=== PATIENT | female | born 1945 | race Caucasian/White ===

== ENCOUNTER 2018-01-24 20:01 | Emergency (ER) | payer MEDICARE ==
[2018-01-24 21:08] LABS: Hematocrit 33.9 % (30.3-42.9); Hemoglobin 11.2 gm/dl (10.1-14.3); Mean Corpuscular HGB Conc 33 % (30-34); Mean Corpuscular Hemoglobin 34 pg (28-32); Mean Corpuscular Volume 104 fl (79-97); Red Blood Count 3.27 M/mm3 (3.65-5.03)
[2018-01-24 21:09] LABS: Basophils # (Auto) 0.1 K/mm3 (0.0-0.1); Eosinophils # (Auto) 0.2 K/mm3 (0.0-0.4); Eosinophils % (Auto) 2.8 % (0.0-4.3); Lymphocytes # (Auto) 2.4 K/mm3 (1.2-5.4); Lymphocytes % (Auto) 38.3 % (13.4-35.0); Monocytes # (Auto) 0.3 K/mm3 (0.0-0.8); Platelet Count 196 K/mm3 (140-440); Red Cell Distribution Width 13.6 % (13.2-15.2)
[2018-01-24 21:16] LABS: Albumin 4.5 g/dL (3.9-5); Calcium 10.1 mg/dL (8.4-10.2)
[2018-01-24] MEDS ORDERED: NACL 0.9% 1000 ML 1,000 ML IV ONE (23:22)
--- NOTE | 2018-01-24 23:25 | Emergency Department Report ---
ED ENT HPI - General Chief complaint: Nausea/Vomiting/Diarrhea Stated complaint: N/V Source: patient Mode of arrival: Ambulatory Limitations: No Limitations - History of Present Illness Initial comments: 72-year-old female presents to the hospital with multiple complaints. The the past 3 days she is stated that her thyroid nodules in her throat making it difficult for her to swallow and breathe. She has nausea and one episode of vomiting since yesterday. Patient has some mild diarrhea yesterday which has since resolved. Patient states she has been out of her thyroid medicine for the last 7 months sleeping a lot. No reports of fever, focal weakness, focal numbness, chest pain, shortness, or abdominal pain. On previous medical record review patient was on Synthroid 100 g every morning. She states she has not had the medication because she was unable to follow up with her primary care doctor Dr. Tulio Shoemaker due to lack of transportation.. - Related Data Previous Rx's Medication Instructions Recorded Last Taken Type Albuterol Sulfate [Ventolin HFA] 2 puff IH Q4H PRN #30 hfa.aer.ad 04/12/17 Unknown Rx Azithromycin [Zithromax TAB] 500 mg PO QDAY #3 tablet 04/12/17 Unknown Rx Famotidine [Pepcid] 20 mg PO QDAY #30 tablet 04/12/17 Unknown Rx Fluticasone/Salmeterol [Advair 1 each INHALATION BID 30 Days 04/12/17 Unknown Rx 250-50 Diskus] blst.w.dev Ipratropium/Albuterol Sulfate 1 ampul IH Q6HRT #30 ampul.neb 04/12/17 Unknown Rx [DUONEB *Not for PRN Use*] Montelukast [Singulair] 10 mg PO QHS #30 tablet 04/12/17 Unknown Rx Prednisone [predniSONE 10 mg 10 mg PO .TAPER #1 tab.ds.pk 04/12/17 Unknown Rx (6-Day Pack, 21 Tabs)] Levothyroxine [Synthroid] 100 mcg PO QAM #30 tablet 01/25/18 Unknown Rx Allergies Allergy/AdvReac Type Severity Reaction Status Date / Time Sulfa (Sulfonamide Allergy Shortness Verified 04/10/17 18:33 Antibiotics) of Breath ED Dental HPI - General Chief complaint: Nausea/Vomiting/Diarrhea Stated complaint: N/V Source: patient Mode of arrival: Ambulatory Limitations: No Limitations - Related Data Previous Rx's Medication Instructions Recorded Last Taken Type Albuterol Sulfate [Ventolin HFA] 2 puff IH Q4H PRN #30 hfa.aer.ad 04/12/17 Unknown Rx Azithromycin [Zithromax TAB] 500 mg PO QDAY #3 tablet 04/12/17 Unknown Rx Famotidine [Pepcid] 20 mg PO QDAY #30 tablet 04/12/17 Unknown Rx Fluticasone/Salmeterol [Advair 1 each INHALATION BID 30 Days 04/12/17 Unknown Rx 250-50 Diskus] blst.w.dev Ipratropium/Albuterol Sulfate 1 ampul IH Q6HRT #30 ampul.neb 04/12/17 Unknown Rx [DUONEB *Not for PRN Use*] Montelukast [Singulair] 10 mg PO QHS #30 tablet 04/12/17 Unknown Rx Prednisone [predniSONE 10 mg 10 mg PO .TAPER #1 tab.ds.pk 04/12/17 Unknown Rx (6-Day Pack, 21 Tabs)] Levothyroxine [Synthroid] 100 mcg PO QAM #30 tablet 01/25/18 Unknown Rx Allergies Allergy/AdvReac Type Severity Reaction Status Date / Time Sulfa (Sulfonamide Allergy Shortness Verified 04/10/17 18:33 Antibiotics) of Breath ED Review of Systems ROS: Stated complaint: N/V Other details as noted in HPI Comment: All other systems reviewed and negative ED Past Medical Hx - Past Medical History Hx Hypertension: Yes Hx Congestive Heart Failure: No Hx Diabetes: No Hx Renal Disease: Yes Hx Arthritis: Yes Hx Psychiatric Treatment: Yes (anxiety / depression) Hx Asthma: Yes Hx COPD: Yes ("nodules in throat ") Additional medical history: scoliosis. spinal stenosis. osteoporosis. thyroid - Surgical History Additional Surgical History: bilateral hip surgery. tubal ligation - Social History Smoking Status: Never Smoker Substance Use Type: None - Medications Home Medications: Home Medications Medication Instructions Recorded Confirmed Last Taken Type Albuterol Sulfate [Ventolin HFA] 2 puff IH Q4H PRN #30 hfa.aer.ad 04/12/17 Unknown Rx Azithromycin [Zithromax TAB] 500 mg PO QDAY #3 tablet 04/12/17 Unknown Rx Famotidine [Pepcid] 20 mg PO QDAY #30 tablet 04/12/17 Unknown Rx Fluticasone/Salmeterol [Advair 1 each INHALATION BID 30 Days 04/12/17 Unknown Rx 250-50 Diskus] blst.w.dev Ipratropium/Albuterol Sulfate 1 ampul IH Q6HRT #30 ampul.neb 04/12/17 Unknown Rx [DUONEB *Not for PRN Use*] Montelukast [Singulair] 10 mg PO QHS #30 tablet 04/12/17 Unknown Rx Prednisone [predniSONE 10 mg 10 mg PO .TAPER #1 tab.ds.pk 04/12/17 Unknown Rx (6-Day Pack, 21 Tabs)] Levothyroxine [Synthroid] 100 mcg PO QAM #30 tablet 01/25/18 Unknown Rx ED Physical Exam - General Limitations: No Limitations - Other Other exam information: General: No limitations, patient is alert in no acute distress Head exam: Atraumatic, normocephalic Eyes exam: Normal appearance, pupils equal reactive to light, extraocular movements intact ENT: Moist mucous membrane, normal oropharynx Neck exam: Normal inspection, full range of motion, no meningismus nontender. No thyromegaly noted Respiratory exam: Clear to auscultation bilateral, no wheezes, rales, crackles Cardiovascular: Normal rate and rhythm, normal heart sounds Abdomen: Soft, nondistended, mild right lower quadrant tenderness, with normal bowel sounds, no rebound, or guarding Extremity: Full range of motion normal inspection no deformity Back: Normal Inspection, full range of motion, no tenderness Neurologic: Alert, oriented x3, cranial nerves intact, no motor or sensory deficit Psychiatric: normal affect, normal mood Skin: Warm, dry, intact ED Course Vital Signs 01/24/18 01/24/18 01/24/18 20:14 23:22 23:30 Temperature 98.2 F Pulse Rate 85 Respiratory 16 Rate Blood Pressure 103/58 Blood Pressure 104/68 [Right] O2 Sat by Pulse 95 100 94 Oximetry 01/24/18 01/25/18 23:35 02:07 Temperature 97.7 F Pulse Rate 86 78 Respiratory 18 Rate Blood Pressure Blood Pressure 97/62 105/59 [Right] O2 Sat by Pulse 97 Oximetry ED Medical Decision Making - Lab Data Result diagrams: 01/24/18 20:34 01/24/18 20:34 Lab Results 01/24/18 01/24/18 01/24/18 Range/Units 20:34 20:34 20:40 WBC 6.3 (4.5-11.0) K/mm3 RBC 3.27 L (3.65-5.03) M/mm3 Hgb 11.2 (10.1-14.3) gm/dl Hct 33.9 (30.3-42.9) % MCV 104 H (79-97) fl MCH 34 H (28-32) pg MCHC 33 (30-34) % RDW 13.6 (13.2-15.2) % Plt Count 196 (140-440) K/mm3 Lymph % (Auto) 38.3 H (13.4-35.0) % Nobles % (Auto) 5.0 (0.0-7.3) % Eos % (Auto) 2.8 (0.0-4.3) % Baso % (Auto) 1.0 (0.0-1.8) % Lymph # 2.4 (1.2-5.4) K/mm3 Nobles # 0.3 (0.0-0.8) K/mm3 Eos # 0.2 (0.0-0.4) K/mm3 Baso # 0.1 (0.0-0.1) K/mm3 Add Manual Diff Complete Seg Neutrophils % 52.9 (40.0-70.0) % Seg Neutrophils # 3.3 (1.8-7.7) K/mm3 Sodium 140 (137-145) mmol/L Potassium 4.6 (3.6-5.0) mmol/L Chloride 101.4 (98-107) mmol/L Carbon Dioxide 26 (22-30) mmol/L Anion Gap 17 mmol/L BUN 19 H (7-17) mg/dL Creatinine 1.8 H (0.7-1.2) mg/dL Estimated GFR 28 ml/min BUN/Creatinine Ratio 11 % Glucose 106 H (65-100) mg/dL Calcium 10.1 (8.4-10.2) mg/dL Total Bilirubin 0.60 (0.1-1.2) mg/dL AST 15 (5-40) units/L ALT 7 (7-56) units/L Alkaline Phosphatase 96 (35-129) units/L Total Protein 6.4 (6.3-8.2) g/dL Albumin 4.5 (3.9-5) g/dL Albumin/Globulin Ratio 2.4 % TSH (0.270-4.200) mlU/mL Free T4 (0.76-1.46) ng/dL Urine Color (Yellow) Urine Turbidity (Clear) Urine pH (5.0-7.0) Ur Specific [place] (1.003-1.030) Urine Protein (Negative) mg/dL Urine Glucose (UA) (Negative) mg/dL Urine Ketones (Negative) mg/dL Urine Blood (Negative) Urine Nitrite (Negative) Urine Bilirubin (Negative) Urine Urobilinogen (<2.0) mg/dL Ur Leukocyte Esterase (Negative) Urine WBC (Auto) (0.0-6.0) /HPF Urine RBC (Auto) (0.0-6.0) /HPF U Epithel Cells (Auto) (0-13.0) /HPF Urine Mucus /HPF Blood Type O POSITIVE Antibody Screen Negative 01/24/18 01/25/18 Range/Units 23:33 00:06 WBC (4.5-11.0) K/mm3 RBC (3.65-5.03) M/mm3 Hgb (10.1-14.3) gm/dl Hct (30.3-42.9) % MCV (79-97) fl MCH (28-32) pg MCHC (30-34) % RDW (13.2-15.2) % Plt Count (140-440) K/mm3 Lymph % (Auto) (13.4-35.0) % Nobles % (Auto) (0.0-7.3) % Eos % (Auto) (0.0-4.3) % Baso % (Auto) (0.0-1.8) % Lymph # (1.2-5.4) K/mm3 [place]les # (0.0-0.8) K/mm3 Eos # (0.0-0.4) K/mm3 Baso # (0.0-0.1) K/mm3 Add Manual Diff Seg Neutrophils % (40.0-70.0) % Seg Neutrophils # (1.8-7.7) K/mm3 Sodium (137-145) mmol/L Potassium (3.6-5.0) mmol/L Chloride (98-107) mmol/L Carbon Dioxide (22-30) mmol/L Anion Gap mmol/L BUN (7-17) mg/dL Creatinine (0.7-1.2) mg/dL Estimated GFR ml/min BUN/Creatinine Ratio % Glucose (65-100) mg/dL Calcium (8.4-10.2) mg/dL Total Bilirubin (0.1-1.2) mg/dL AST (5-40) units/L ALT (7-56) units/L Alkaline Phosphatase (35-129) units/L Total Protein (6.3-8.2) g/dL Albumin (3.9-5) g/dL Albumin/Globulin Ratio % TSH > 100.000 H (0.270-4.200) mlU/mL Free T4 0.23 L (0.76-1.46) ng/dL Urine Color Yellow (Yellow) Urine Turbidity Clear (Clear) Urine pH 6.0 (5.0-7.0) Ur Specific [place] 1.016 (1.003-1.030) Urine Protein <15 mg/dl (Negative) mg/dL Urine Glucose (UA) Neg (Negative) mg/dL Urine Ketones Neg (Negative) mg/dL Urine Blood Neg (Negative) Urine Nitrite Neg (Negative) Urine Bilirubin Neg (Negative) Urine Urobilinogen 2.0 (<2.0) mg/dL Ur Leukocyte Esterase Neg (Negative) Urine WBC (Auto) < 1.0 (0.0-6.0) /HPF Urine RBC (Auto) 1.0 (0.0-6.0) /HPF U Epithel Cells (Auto) < 1.0 (0-13.0) /HPF Urine Mucus Few /HPF Blood Type Antibody Screen - Radiology Data Radiology results: report reviewed ct neck noncontrast IMPRESSION: No acute inflammatory or neoplastic process identified in the neck. No definite thyroid nodule and L5. The study is limited without IV contrast. Localized mucosal thickening in the right ethmoid air cells. ct a/p noncontrast IMPRESSION: Gallstones with choledocholithiasis. No secondary signs of acute cholecystitis. Large hiatal hernia. Small pericardial effusion. Small right-sided pleural effusion. Benign peripelvic cysts in left kidney. Chronic compression fractures of L1 and L3 with kyphoplasty changes. Hardware also noted in both proximal femora. - Medical Decision Making Patient is stable tolerating by mouth without difficulty swallowing. Labs only significant for hypothyroidism. CT neck and abdomen and pelvis only show incidental findings. Patient provided a copy of her reports to follow-up. Stressed importance of follow-up with her primary care doctor for further management of her thyroid and other incidental findings. 1 month supply of Synthroid of her last known dose will be provided. First dose provided in the ED - Differential Diagnosis gastroenteritis, hypothyroidism, UTI, esophageal/neck mass Critical Care Time: No Critical care attestation.: If time is entered above; I have spent that time in minutes in the direct care of this critically ill patient, excluding procedure time. ED Disposition Clinical Impression: Hypothyroidism, Nonadherence to medication, Chronic renal insufficiency, Hiatal hernia, Gallstones Disposition: TO HOME OR SELFCARE Is pt being admited?: No Does the pt Need Aspirin: No Condition: Stable Instructions: Hiatal Hernia (ED), Hypothyroidism (ED), Impaired Kidney Function (ED) Additional Instructions: Taking medication as prescribed. Take a copy of the CAT scan provided to your for further evaluation and monitoring of incidental findings. It is also very important for you to follow up with your primary care doctor for further adjustment in your thyroid medication. Please return if symptoms worsen as indicated by good discharge instructions. You have been provided a follow-up with GI specialist as well. Prescriptions: Levothyroxine [Synthroid] 100 mcg PO QAM #30 tablet Referrals: ANA FINE MD [Primary Care Provider] - 3-5 Days your, pmd [Other] - 3-5 Days ROMA KUMAR MD [Staff Physician] - 3-5 Days (GI specialist) Time of Disposition: 02:34
[2018-01-25] LABS: Bilirubin,Urine NEG (Negative); Blood,Urine NEG (Negative); Color,Urine Yellow (Yellow); Mucus,Urine FEW /HPF; Protein,Urine <15 mg/dL mg/dL (Negative); WBC,Urine < 1.0 /HPF (0.0-6.0)
--- NOTE | 2018-01-25 00:34 | Cat Scan Report ---
FINAL REPORT EXAM: CT ABDOMEN PELVIS WO CON HISTORY: diarhea, vomiting, lower abd pain TECHNIQUE: Routine axial imaging was obtained of the abdomen and pelvis without oral or IV contrast. Sagittal and coronal reconstructions were reviewed. FINDINGS: Imaging through lung bases reveal a small right-sided pleural effusion. There is a large hiatal hernia. There is a small pericardial effusion. There are no localized infiltrates. The liver is normal size and reveals intrahepatic ductal dilatation. There are dependent stones in the gallbladder. The common bile duct measures 11 millimeters diameter. There are multiple stones in the common bile duct measuring 10 millimeters in diameter. The pancreas is atrophic. The spleen and adrenal glands are unremarkable. The kidneys show no evidence of hydronephrosis. There are peripelvic cysts in the left kidney. There calcification of the abdominal aorta. The bowel loops are not distended. There is no evidence of adenopathy. The appendix is not seen with certainty. The uterus and bladder appear normal. There is hardware in both proximal femora. There is generalized osteoporosis with chronic compression fractures of L1 and L3 with kyphoplasty changes. IMPRESSION: Gallstones with choledocholithiasis. No secondary signs of acute cholecystitis. Large hiatal hernia. Small pericardial effusion. Small right-sided pleural effusion. Benign peripelvic cysts in left kidney. Chronic compression fractures of L1 and L3 with kyphoplasty changes. Hardware also noted in both proximal femora.
[2018-01-25 01:27] LABS: Free T4 (Free Thyroxine) 0.23 ng/dL (0.76-1.46)
--- NOTE | 2018-01-25 01:42 | Cat Scan Report ---
FINAL REPORT EXAM: CT NECK WO CON HISTORY: hx of "thyroid nodule" difficulty swallowing, vlad TECHNIQUE: Routine axial imaging was obtained of the soft tissues of the neck without IV contrast with sagittal and coronal reconstructions. There are no previous studies available for comparison. FINDINGS: The study is limited without IV contrast. There is no evidence of neoplasia or adenopathy in any compartment of the neck. The airway is unremarkable. The thyroid gland is normal size. No definite nodule seen in either thyroid lobe. The lung apices are clear. The retropharyngeal space appears normal. The submandibular and parotid glands appear normal. Along the skullbase the visualized sinuses reveal patchy mucosal thickening in the right ethmoid air cells. The mastoid air cells are well pneumatized. The cervical spine reveals disc degeneration at the C5-6 level. IMPRESSION: No acute inflammatory or neoplastic process identified in the neck. No definite thyroid nodule and L5. The study is limited without IV contrast. Localized mucosal thickening in the right ethmoid air cells.
[2018-01-25] MEDS ORDERED: SYNTHROID PO ONE ×2 (01:55)
[2018-01-25 02:08] VITALS: BP 105/59
== END 2018-01-25 02:55 | disposition home or self-care (01) ==
LOC: ED 20:01
DX: K80.80 Other cholelithiasis without obstruction (principal); E03.9 Hypothyroidism, unspecified; K44.9 Diaphragmatic hernia without obstruction or gangrene; I12.9 Hypertensive chronic kidney disease with stage 1 through stage 4 chronic kidney disease, or unspecified chronic kidney disease; N18.9 Chronic kidney disease, unspecified; M19.90 Unspecified osteoarthritis, unspecified site; F41.9 Anxiety disorder, unspecified; F32.9 Major depressive disorder, single episode, unspecified; J44.9 Chronic obstructive pulmonary disease, unspecified; Z98.51 Tubal ligation status; Z88.2 Allergy status to sulfonamides; Z79.899 Other long term (current) drug therapy
CPT/HCPCS: 36415; 70490; 74176; 80053; 81001; 84439; 84443; 85025; 86850; 86900; 86901; 96360; 99284; J7030

== ENCOUNTER 2018-01-27 17:03 | Emergency (ER) | payer MEDICARE ==
[2018-01-27 17:19] VITALS: BP 103/63
[2018-01-27] MEDS ORDERED: ULTRAM PO ONE (17:29)
--- NOTE | 2018-01-27 17:33 | Emergency Department Report ---
ED General Adult HPI - General Chief complaint: Skin/Abscess/Foreign Body Stated complaint: SKIN TARE Time Seen by Provider: 01/27/18 17:13 Source: patient Mode of arrival: Ambulatory Limitations: No Limitations - History of Present Illness Initial comments: Patient presents to emergency department for a skin tear to her left forearm. Patient complains of it being very painful. Patient has no other complaints Location: upper extremity Radiation: non-radiation Severity scale (0 -10): 3 Quality: burning Consistency: constant Improves with: none Worsens with: none Treatments Prior to Arrival: none - Related Data Previous Rx's Medication Instructions Recorded Last Taken Type Albuterol Sulfate [Ventolin HFA] 2 puff IH Q4H PRN #30 hfa.aer.ad 04/12/17 Unknown Rx Azithromycin [Zithromax TAB] 500 mg PO QDAY #3 tablet 04/12/17 Unknown Rx Famotidine [Pepcid] 20 mg PO QDAY #30 tablet 04/12/17 Unknown Rx Fluticasone/Salmeterol [Advair 1 each INHALATION BID 30 Days 04/12/17 Unknown Rx 250-50 Diskus] blst.w.dev Ipratropium/Albuterol Sulfate 1 ampul IH Q6HRT #30 ampul.neb 04/12/17 Unknown Rx [DUONEB *Not for PRN Use*] Montelukast [Singulair] 10 mg PO QHS #30 tablet 04/12/17 Unknown Rx Prednisone [predniSONE 10 mg 10 mg PO .TAPER #1 tab.ds.pk 04/12/17 Unknown Rx (6-Day Pack, 21 Tabs)] Levothyroxine [Synthroid] 100 mcg PO QAM #30 tablet 01/25/18 Unknown Rx traMADol [Ultram] 50 mg PO Q6HR PRN #20 tablet 01/27/18 Unknown Rx Allergies Allergy/AdvReac Type Severity Reaction Status Date / Time Sulfa (Sulfonamide Allergy Shortness Verified 04/10/17 18:33 Antibiotics) of Breath ED Review of Systems ROS: Stated complaint: SKIN TARE Other details as noted in HPI Comment: All other systems reviewed and negative Constitutional: denies: chills, fever Eyes: denies: eye pain, eye discharge, vision change ENT: denies: ear pain, throat pain Respiratory: denies: cough, shortness of breath, wheezing Cardiovascular: denies: chest pain, palpitations Endocrine: no symptoms reported Gastrointestinal: denies: abdominal pain, nausea, diarrhea Genitourinary: denies: urgency, dysuria, discharge Musculoskeletal: denies: back pain, joint swelling, arthralgia Skin: denies: rash, lesions Neurological: denies: headache, weakness, paresthesias Psychiatric: denies: anxiety, depression Hematological/Lymphatic: denies: easy bleeding, easy bruising ED Past Medical Hx - Past Medical History Hx Hypertension: Yes Hx Congestive Heart Failure: No Hx Diabetes: No Hx Renal Disease: Yes Hx Arthritis: Yes Hx Psychiatric Treatment: Yes (anxiety / depression) Hx Asthma: Yes Hx COPD: Yes ("nodules in throat ") Additional medical history: scoliosis. spinal stenosis. osteoporosis. thyroid - Surgical History Additional Surgical History: bilateral hip surgery. tubal ligation - Social History Smoking Status: Never Smoker Substance Use Type: None - Medications Home Medications: Home Medications Medication Instructions Recorded Confirmed Last Taken Type Albuterol Sulfate [Ventolin HFA] 2 puff IH Q4H PRN #30 hfa.aer.ad 04/12/17 Unknown Rx Azithromycin [Zithromax TAB] 500 mg PO QDAY #3 tablet 04/12/17 Unknown Rx Famotidine [Pepcid] 20 mg PO QDAY #30 tablet 04/12/17 Unknown Rx Fluticasone/Salmeterol [Advair 1 each INHALATION BID 30 Days 04/12/17 Unknown Rx 250-50 Diskus] blst.w.dev Ipratropium/Albuterol Sulfate 1 ampul IH Q6HRT #30 ampul.neb 04/12/17 Unknown Rx [DUONEB *Not for PRN Use*] Montelukast [Singulair] 10 mg PO QHS #30 tablet 04/12/17 Unknown Rx Prednisone [predniSONE 10 mg 10 mg PO .TAPER #1 tab.ds.pk 04/12/17 Unknown Rx (6-Day Pack, 21 Tabs)] Levothyroxine [Synthroid] 100 mcg PO QAM #30 tablet 01/25/18 Unknown Rx traMADol [Ultram] 50 mg PO Q6HR PRN #20 tablet 01/27/18 Unknown Rx ED Physical Exam - General Limitations: No Limitations General appearance: alert, in no apparent distress - Head Head exam: Present: atraumatic, normocephalic - Eye Eye exam: Present: normal appearance - ENT ENT exam: Present: mucous membranes moist - Neck Neck exam: Present: normal inspection - Respiratory Respiratory exam: Present: normal lung sounds bilaterally. Absent: respiratory distress - Cardiovascular Cardiovascular Exam: Present: regular rate, normal rhythm. Absent: systolic murmur, diastolic murmur, rubs, gallop - GI/Abdominal GI/Abdominal exam: Present: soft, normal bowel sounds - Extremities Exam Extremities exam: Present: normal inspection - Back Exam Back exam: Present: normal inspection - Neurological Exam Neurological exam: Present: alert, oriented X3 - Psychiatric Psychiatric exam: Present: normal affect, normal mood - Skin Skin exam: Present: other (skin tear to right antebrachium just distal to the antecubital fossa with a bruising of the antecubital fossa. No signs of infection around skin tear). Absent: rash ED Course Vital Signs 01/27/18 17:16 Temperature 98.3 F Pulse Rate 100 H Respiratory 20 Rate Blood Pressure 103/63 O2 Sat by Pulse 94 Oximetry ED Medical Decision Making - Medical Decision Making Skin tear was wrapped with petroleum based dressing and wrapped with Kerlix Critical care attestation.: If time is entered above; I have spent that time in minutes in the direct care of this critically ill patient, excluding procedure time. ED Disposition Clinical Impression: Skin tear Disposition: DC-01 TO HOME OR SELFCARE Is pt being admited?: No Does the pt Need Aspirin: No Condition: Stable Instructions: Skin Tear (ED) Additional Instructions: Return if worse Prescriptions: traMADol [Ultram] 50 mg PO Q6HR PRN #20 tablet PRN Reason: Pain Referrals: ELVIS ANGUIANO MD [Staff Physician] - 3-5 Days Time of Disposition: 17:31
== END 2018-01-27 17:49 | disposition home or self-care (01) ==
LOC: ED 17:03
DX: S51.812A Laceration without foreign body of left forearm, initial encounter (principal); I10 Essential (primary) hypertension; M19.90 Unspecified osteoarthritis, unspecified site; J44.9 Chronic obstructive pulmonary disease, unspecified; Z88.2 Allergy status to sulfonamides; X58.XXXA Exposure to other specified factors, initial encounter; Y93.89 Activity, other specified; Y92.89 Other specified places as the place of occurrence of the external cause; Y99.8 Other external cause status
CPT/HCPCS: 99282

== ENCOUNTER 2018-04-20 12:23 | Emergency (ER) | payer MEDICARE ==
--- NOTE | 2018-04-20 13:03 | Emergency Department Report ---
HPI - General Time Seen by Provider: 04/20/18 12:58 - HPI HPI: 72-year-old female presents to the emergency department via EMS with complaint of pain and concern for fracture to the left hip, left forearm and left rib cage. The patient was leaving the rental/lesion office and missed a step and fell down onto the left side of her body. She received 50 g of fentanyl in route with only mild relief. She has a previous history of bilateral hip fractures with "I have nails in my left hip and screws in my right hip." She is a tobacco smoker. She normally walks with a walker. Her primary care physician is Tulio Shoemaker. ED Past Medical Hx - Past Medical History Hx Hypertension: Yes Hx Congestive Heart Failure: No Hx Diabetes: No Hx Renal Disease: Yes Hx Arthritis: Yes Hx Psychiatric Treatment: Yes (anxiety / depression) Hx Asthma: Yes Hx COPD: Yes ("nodules in throat ") Additional medical history: scoliosis. spinal stenosis. osteoporosis. thyroid - Surgical History Additional Surgical History: bilateral hip surgery. tubal ligation - Social History Smoking Status: Never Smoker Substance Use Type: None - Medications Home Medications: Home Medications Medication Instructions Recorded Confirmed Last Taken Type Albuterol Sulfate [Ventolin HFA] 2 puff IH Q4H PRN #30 hfa.aer.ad 04/12/17 Unknown Rx Azithromycin [Zithromax TAB] 500 mg PO QDAY #3 tablet 04/12/17 Unknown Rx Famotidine [Pepcid] 20 mg PO QDAY #30 tablet 04/12/17 Unknown Rx Fluticasone/Salmeterol [Advair 1 each INHALATION BID 30 Days 04/12/17 Unknown Rx 250-50 Diskus] blst.w.dev Ipratropium/Albuterol Sulfate 1 ampul IH Q6HRT #30 ampul.neb 04/12/17 Unknown Rx [DUONEB *Not for PRN Use*] Montelukast [Singulair] 10 mg PO QHS #30 tablet 04/12/17 Unknown Rx Prednisone [predniSONE 10 mg 10 mg PO .TAPER #1 tab.ds.pk 04/12/17 Unknown Rx (6-Day Pack, 21 Tabs)] Levothyroxine [Synthroid] 100 mcg PO QAM #30 tablet 01/25/18 Unknown Rx traMADol [Ultram] 50 mg PO Q6HR PRN #20 tablet 01/27/18 Unknown Rx ED Review of Systems ROS: Stated complaint: HIP FRACTURE/FALL Other details as noted in HPI Comment: All other systems reviewed and negative Constitutional: denies: chills, fever Eyes: denies: eye pain, eye discharge, vision change ENT: denies: ear pain, throat pain Respiratory: denies: cough, shortness of breath, wheezing Cardiovascular: denies: chest pain, palpitations Gastrointestinal: denies: abdominal pain, nausea, diarrhea Genitourinary: denies: urgency, dysuria, discharge Musculoskeletal: arthralgia, other (rib pain, forearm pain, left hip pain). denies: back pain Skin: denies: rash, lesions Neurological: denies: headache, weakness, paresthesias Physical Exam - Physical Exam Physical Exam: GENERAL: The patient is well-developed well-nourished. HENT: Normocephalic. Atraumatic. Patient has moist mucous membranes. EYES: Extraocular motions are intact. Pupils equal reactive to light bilaterally. NECK: Supple. Trachea is midline. CHEST/LUNGS: Mild wheezing throughout the chest. No tachypnea or accessory muscle use. There is some tenderness palpation along the left lateral rib cage. There is no respiratory distress noted. HEART/CARDIOVASCULAR: Regular. There is no tachycardia. There is no murmur. ABDOMEN: Abdomen is soft, nontender. Patient has normal bowel sounds. There is no abdominal distention. SKIN: Skin is warm and dry. NEURO: The patient is awake, alert, and oriented. The patient is cooperative. The patient has no focal neurologic deficits. The patient has normal speech. MUSCULOSKELETAL: There is tenderness palpation to the left mid to distal forearm and left wrist. There is some tenderness palpation to the left hip and with compression of the pelvis but no laxity. ED Medical Decision Making - Lab Data Result diagrams: 04/20/18 13:09 04/20/18 13:09 - Radiology Data Radiology results: report reviewed FINAL REPORT EXAM: XR HIP 2-3V LT HISTORY: left hip pain TECHNIQUE: X-ray pelvis, one view Comparison: None FINDINGS: Visualization of detail is somewhat limited by overlapping structures due to imaging the patient on their side as a result of pain. There appears to be displaced fractures of the left superior and inferior pubic rami. Visualization of detail of the sacrum and right iliac wing is limited. There is retained hardware in the proximal femurs bilaterally. There is evidence of kyphoplasty in the mid lumbar spine. IMPRESSION: 1. Study somewhat degraded by artifact. 2. Appearance of left superior and inferior pubic rami fractures. If further imaging is required, CT may be helpful. 3. Retained hardware proximal femurs bilaterally. 4. Previous kyphoplasty mid lumbar spine. EXAM: XR FOREARM LT HISTORY: left forearm pain, fall TECHNIQUE: Frontal and lateral views left forearm Comparison: None FINDINGS: There is a displaced and angulated fracture of the distal radius metaphysis and epiphysis with involvement of the articular surface. There is associated soft tissue swelling. There is evidence of degenerative change of the thumb carpal metacarpal joint and of the interphalangeal joints of all digits. IMPRESSION: 1. Angulated and displaced fracture distal metaphysis and epiphysis left radius with involvement of the articular surface. 2. Degenerative change of the wrist and hand. FINAL REPORT EXAM: XR RIBS UNI W PA CHEST 3+V LT HISTORY: left rib pain, fall TECHNIQUE: Frontal view of the chest and multiple views left ribs Comparison: CT abdomen and pelvis dated January 24, 2018 FINDINGS: Visualization detail in the left chest is limited by overlapping structures and clothing/sheets. There appear to be small areas of pulmonary consolidation in the left mid and lower lung field with a left pleural fluid collection or pleural thickening. Evaluation of the left ribs is significantly limited by artifact. There appears to be a fracture of the lateral aspect of a left lower rib. There is evidence of healing fractures of the lateral aspect of right lower ribs with callus formation. There is no definite evidence of pneumothorax. The cardiac silhouette appears to be upper limits of normal size. There is a large hiatal hernia. There is atherosclerotic vascular calcification of the thoracic aorta. There is evidence of previous kyphoplasty of lower thoracic and upper lumbar vertebra. IMPRESSION: 1. Study degraded by artifact. 2. Possible fracture lateral aspect of a left lower rib. 3. Appearance of healing fractures right lower ribs with callus formation. 4. Appearance of patchy areas of pulmonary consolidation left lung, atelectasis versus infiltrates, with left pleural fluid collection or pleural thickening. CT chest would be helpful for further evaluation. 5. Previous kyphoplasty of lower thoracic and upper lumbar vertebra. Transcribed By: ED Dictated By: MARY LOU WOLFE MD Electronically Authenticated By: MARY LOU WOLFE MD Signed Date/Time: 04/20/18 4405 - Medical Decision Making The patient had a fall where she missed a step or the curb and fell onto her left side. She denies any significant head trauma or any loss of consciousness. Her main complaint is pain to the left side of the rib cage, left hip pain and left forearm and wrist pain. The patient is in a position where she is pronated with her left leg slightly flexed and abducted and her left arm out on her side in a makeshift splint. It took multiple pain medications before the patient would allow for x-rays to be done and it was difficult to get appropriate x-rays while the patient was in this position but she would not allow us to move her onto her back. X-rays appear to show a distal left radius fracture that goes into the joint that is slightly angulated and depressed. She has a fracture of the left superior and inferior pubic rami. There is also questionable left lateral lower rib fractures. Since the patient has polytrauma, I contacted [facility] and the patient has been accepted for transfer to the trauma service, ER to ER, by Dr. Lubin. All the patient's x-rays and labs will be compiled and sent with the patient. The patient has remained stable throughout her ED course thus far. - Differential Diagnosis hip fracture, pelvic fracture, rib fracture, pneumothorax, wrist fracture Critical Care Time: No Critical care attestation.: If time is entered above; I have spent that time in minutes in the direct care of this critically ill patient, excluding procedure time. ED Disposition Clinical Impression: Rib injury Fracture of superior pubic ramus Qualifiers: Encounter type: initial encounter Fracture type: closed Laterality: left Qualified Code(s): S32.512A - Fracture of superior rim of left pubis, initial encounter for closed fracture Inferior pubic ramus fracture Qualifiers: Encounter type: initial encounter Fracture type: closed Laterality: left Qualified Code(s): S32.592A - Other specified fracture of left pubis, initial encounter for closed fracture Distal radius fracture, left Qualifiers: Encounter type: initial encounter Fracture type: closed Fracture morphology: unspecified fracture morphology Qualified Code(s): S52.502A - Unspecified fracture of the lower end of left radius, initial encounter for closed fracture Fall Qualifiers: Encounter type: initial encounter Qualified Code(s): W19.XXXA - Unspecified fall, initial encounter COPD (chronic obstructive pulmonary disease) Qualifiers: COPD type: unspecified COPD Qualified Code(s): J44.9 - Chronic obstructive pulmonary disease, unspecified Disposition: DC/TX-70 ANOTHER TYPE HLTHCARE Is pt being admited?: No Condition: Fair Instructions: Chronic Obstructive Pulmonary Disease (ED) Time of Disposition: 18:27
[2018-04-20 13:20] LABS: Basophils # (Auto) 0.1 K/mm3 (0.0-0.1); Basophils % (Auto) 0.9 % (0.0-1.8); Eosinophils # (Auto) 0.2 K/mm3 (0.0-0.4); Eosinophils % (Auto) 2.7 % (0.0-4.3); Hematocrit 28.8 % (30.3-42.9); Hemoglobin 9.7 gm/dl (10.1-14.3); Lymphocytes # (Auto) 1.5 K/mm3 (1.2-5.4); Mean Corpuscular HGB Conc 34 % (30-34); Mean Corpuscular Hemoglobin 33 pg (28-32); Mean Corpuscular Volume 98 fl (79-97); Monocytes # (Auto) 0.4 K/mm3 (0.0-0.8); Monocytes % (Auto) 6.4 % (0.0-7.3); Platelet Count 155 K/mm3 (140-440); Red Blood Count 2.95 M/mm3 (3.65-5.03); Red Cell Distribution Width 16.4 % (13.2-15.2)
[2018-04-20 13:44] LABS: Calcium 9.6 mg/dL (8.4-10.2)
[2018-04-20] MEDS ORDERED: SUBLIMAZE IV ONE ×2 (14:51→15:00)
[2018-04-20] MEDS ORDERED: MORPHINE IV ONE ×2 (15:30→19:02)
[2018-04-20] MEDS ORDERED: NACL 0.9% 1000 ML 1,000 ML IV ONE (15:30)
--- NOTE | 2018-04-20 16:20 | XRay Report ---
FINAL REPORT EXAM: XR FOREARM LT HISTORY: left forearm pain, fall TECHNIQUE: Frontal and lateral views left forearm Comparison: None FINDINGS: There is a displaced and angulated fracture of the distal radius metaphysis and epiphysis with involvement of the articular surface. There is associated soft tissue swelling. There is evidence of degenerative change of the thumb carpal metacarpal joint and of the interphalangeal joints of all digits. IMPRESSION: 1. Angulated and displaced fracture distal metaphysis and epiphysis left radius with involvement of the articular surface. 2. Degenerative change of the wrist and hand.
--- NOTE | 2018-04-20 16:26 | XRay Report ---
FINAL REPORT EXAM: XR HIP 2-3V LT HISTORY: left hip pain TECHNIQUE: X-ray pelvis, one view Comparison: None FINDINGS: Visualization of detail is somewhat limited by overlapping structures due to imaging the patient on their side as a result of pain. There appears to be displaced fractures of the left superior and inferior pubic rami. Visualization of detail of the sacrum and right iliac wing is limited. There is retained hardware in the proximal femurs bilaterally. There is evidence of kyphoplasty in the mid lumbar spine. IMPRESSION: 1. Study somewhat degraded by artifact. 2. Appearance of left superior and inferior pubic rami fractures. If further imaging is required, CT may be helpful. 3. Retained hardware proximal femurs bilaterally. 4. Previous kyphoplasty mid lumbar spine.
--- NOTE | 2018-04-20 16:32 | XRay Report ---
FINAL REPORT EXAM: XR RIBS UNI W PA CHEST 3+V LT HISTORY: left rib pain, fall TECHNIQUE: Frontal view of the chest and multiple views left ribs Comparison: CT abdomen and pelvis dated January 24, 2018 FINDINGS: Visualization detail in the left chest is limited by overlapping structures and clothing/sheets. There appear to be small areas of pulmonary consolidation in the left mid and lower lung field with a left pleural fluid collection or pleural thickening. Evaluation of the left ribs is significantly limited by artifact. There appears to be a fracture of the lateral aspect of a left lower rib. There is evidence of healing fractures of the lateral aspect of right lower ribs with callus formation. There is no definite evidence of pneumothorax. The cardiac silhouette appears to be upper limits of normal size. There is a large hiatal hernia. There is atherosclerotic vascular calcification of the thoracic aorta. There is evidence of previous kyphoplasty of lower thoracic and upper lumbar vertebra. IMPRESSION: 1. Study degraded by artifact. 2. Possible fracture lateral aspect of a left lower rib. 3. Appearance of healing fractures right lower ribs with callus formation. 4. Appearance of patchy areas of pulmonary consolidation left lung, atelectasis versus infiltrates, with left pleural fluid collection or pleural thickening. CT chest would be helpful for further evaluation. 5. Previous kyphoplasty of lower thoracic and upper lumbar vertebra.
[2018-04-20 17:49] VITALS: BP 138/62
[2018-04-20] MEDS ORDERED: MORPHINE ONE (18:54)
== END 2018-04-20 19:05 | disposition other institution (70) ==
LOC: ED 12:23
DX: S32.512A Fracture of superior rim of left pubis, initial encounter for closed fracture (principal); S32.592A Other specified fracture of left pubis, initial encounter for closed fracture; S52.502A Unspecified fracture of the lower end of left radius, initial encounter for closed fracture; S29.9XXA Unspecified injury of thorax, initial encounter; J44.9 Chronic obstructive pulmonary disease, unspecified; I10 Essential (primary) hypertension; M19.90 Unspecified osteoarthritis, unspecified site; F17.210 Nicotine dependence, cigarettes, uncomplicated; W10.9XXA Fall (on) (from) unspecified stairs and steps, initial encounter; Y93.89 Activity, other specified; Y92.89 Other specified places as the place of occurrence of the external cause; Y99.8 Other external cause status
CPT/HCPCS: 29125; 36415; 71101; 73090; 73502; 80048; 82550; 85025; 96374; 96375; 96376; 99285; J2270; J3010; J7030; 51702; 96361